=== PATIENT | female | born 1995 | race Caucasian/White ===

== ENCOUNTER 2018-05-24 08:45 | Emergency (ER) | END 2018-05-24 12:29 | disposition home or self-care (01) ==

== ENCOUNTER 2018-12-10 15:34 | Emergency (ER) | payer BC, OTHER ==
[~2018-12-10] VITALS: Wt 50.3 kg
[~2018-12-10 15:34] MED LIST: ACET325T33 PO; CLOT30CR24 TOP; CLOT45CR19 VAG; FAMO-96 PO; FLUC150T PO; HYDR-4011 PO; ONDA8TAB14 PO; PENI500T PO
[2018-12-10] MEDS ORDERED: IBUP-1561 PO (18:35)
[2018-12-10] MEDS ORDERED: CYCL10TA7 PO (18:35)
[2018-12-10 19:07] VITALS: BP 122/78; PULSE 84; RESP 18
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
== END 2018-12-10 19:09 | disposition home or self-care (01) ==
LOC: FTE 15:34
DX: M54.5 Low back pain (principal); M25.519 Pain in unspecified shoulder
CPT/HCPCS: 99282